=== PATIENT | male | born 1995 | race African-American/Black ===

== ENCOUNTER 2017-01-04 18:17 | Emergency (ER) | payer OTHER, MEDICAID ==
--- NOTE | 2017-01-04 20:26 | ER Document Report ---
ED Psych Disorder / Suicide - General Mode of Arrival: Ambulatory Information source: Parent TRAVEL OUTSIDE OF THE [place] IN LAST 30 DAYS: No - HPI Patient complains to provider of: Homicidal ideation, Homicidal plan Onset: Other - see HPI note Similar symptoms previously: Yes Recently seen / treated by doctor: No <CRISTIANA SOLIS - Last Filed: 01/05/17 01:07> <DAMIÁN WASHINGTON - Last Filed: 01/05/17 04:33> - General Stated Complaint: PSYCH EVAL Time Seen by Provider: 01/04/17 20:17 Notes: Patient is a 21 year old male presenting to the emergency department for homicidal ideation and for a psych evaluation. Patient's mother states that the patient has become argumentative and aggressive. Patient had made verbal threats to "padilla her and his brother, if he had a weapon." Mother is concerned for the safety of herself and her other child. Patient has a history of ADHD, ODD, and a developmental delay. Patient has also been stealing things in his house and he told a friend he wanted to have sex with his sister. Patient mother is scared to take the patient home. (CRISTIANA SOLIS) - Related Data Allergies/Adverse Reactions: No Known Allergies Allergy (Verified 05/05/12 11:47) Past Medical History - General Information source: Parent - Social History Smoking Status: Unknown if Ever Smoked Family History: None Patient has homicidal ideation: Yes Psychiatric Medical History: Reports: Hx Attention Deficit Hyperactivity Disorder, Other - ODD, developmental delay Surgical Hx: Negative - Immunizations Immunizations up to date: Yes Hx Diphtheria, Pertussis, Tetanus Vaccination: Yes <CRISTIANA SOLIS - Last Filed: 01/05/17 01:07> Review of Systems - Review of Systems Constitutional: No symptoms reported EENT: No symptoms reported Cardiovascular: No symptoms reported Respiratory: No symptoms reported Gastrointestinal: No symptoms reported Genitourinary: No symptoms reported Male Genitourinary: No symptoms reported Musculoskeletal: No symptoms reported Skin: No symptoms reported Hematologic/Lymphatic: No symptoms reported Neurological/Psychological: See HPI -: Yes All other systems reviewed and negative <CRISTIANA SOLIS - Last Filed: 01/05/17 01:07> Physical Exam - Vital signs Interpretation: Normal - General General appearance: Appears well, Alert In distress: Mild - HEENT Head: Normocephalic, Atraumatic Eyes: Normal Pupils: PERRL Mucous membranes: Moist - Respiratory Respiratory status: No respiratory distress - Cardiovascular Rhythm: Regular - Abdominal Inspection: Normal - Back Back: Normal - Extremities General upper extremity: Normal inspection, Normal ROM, Normal strength General lower extremity: Normal inspection, Normal ROM, Normal strength - Neurological Neuro grossly intact: Yes Cognition: Normal Delray Coma Scale Eye Opening: Spontaneous Carina Coma Scale Verbal: Oriented Carina Coma Scale Motor: Obeys Commands Carina Coma Scale Total: 15 Speech: Normal - Psychological Associated symptoms: Other - odd affect - Skin Skin Temperature: Warm Skin Moisture: Dry <CRISTIANA SOLIS - Last Filed: 01/05/17 01:07> <DAMIÁN WASHINGTON - Last Filed: 01/05/17 04:33> - Vital signs Vitals: Temperature: 97.7 F Pulse: 94 Blood Pressure: 131/90 Resp. Rate: 18 SaO2: 100 % RA (CRISTIANA SOLIS) Course - Laboratory Result Diagrams: 01/04/17 21:50 01/04/17 21:50 <CRISTIANA SOLIS - Last Filed: 01/05/17 01:07> - Laboratory Result Diagrams: 01/04/17 21:50 01/04/17 21:50 <DAMIÁN WASHINGTON - Last Filed: 01/05/17 04:33> - Re-evaluation Re-evalutation: 01/04/17 Patient is a 21-year-old male who comes in with threatening behavior to family. Patient is medically stable. He has been calm and cooperative in the emergency department. Did however state that if he had a weapon he would hurt his mother and brother. He also apparently stated that he wanted to have sex with his sister. Patient will be held for further evaluation by mental health in the morning. Stable at this time. (DAMIÁN WASHINGTON) - Laboratory Laboratory results interpreted by me: 01/04/17 21:50 Total Bilirubin 2.4 H Total Protein 8.5 H Salicylates < 1.0 L Acetaminophen < 10 L Discharge <CRISTIANA SOLIS - Last Filed: 01/05/17 01:07> <DAMIÁN WASHINGTON - Last Filed: 01/05/17 04:33> - Discharge Clinical Impression: Behavioral disorder Condition: Stable Disposition: OTHER Scribe Attestation: 01/05/17 04:32 I personally performed the services described in the documentation, reviewed and edited the documentation which was dictated to the scribe in my presence, and it accurately records my words and actions. (DAMIÁN WASHINGTON) Scribe Documentation - Scribe Written by [employer]:: Glo Tavera 01/04/17 23:26 acting as scribe for :: Norma <CRISTIANA SOLIS - Last Filed: 01/05/17 01:07>
[2017-01-04 21:46] LABS: APPEARANCE,URINE CLEAR; BILIRUBIN,URINE NEGATIVE (NEGATIVE); GLUCOSE, URINE NEGATIVE (NEGATIVE); KETONES,URINE NEGATIVE (NEGATIVE); LEUKOCYTE ESTERASE,URINE NEGATIVE (NEGATIVE); NITRITE,URINE NEGATIVE (NEGATIVE); PROTEIN,URINE NEGATIVE (NEGATIVE); URINE SPECIFIC GRAVITY 1.009; UROBILINOGEN,URINE NEGATIVE mg/dL (<2.0)
[2017-01-04 22:06] LABS: ABSOLUTE BASOPHILS # (AUTO) 0.1 10^3/uL (0.0-0.2); ABSOLUTE EOSINOPHILS # (AUTO) 0.1 10^3/uL (0.0-0.6); ABSOLUTE MONOCYTES (AUTO) 0.6 10^3/uL (0.1-1.4); ABSOLUTE NEUT (AUTO) 3.7 10^3/uL (1.7-8.2); BASOPHILS % (AUTO) 1.6 % (0-2); HEMATOCRIT 42.5 % (37.9-51.0); HEMOGLOBIN 14.5 g/dL (13.5-17.0); LYMPHOCYTES % (AUTO) 30.5 % (13-45); MEAN CORPUSCULAR HEMOGLOBIN 29.2 pg (27.0-33.4); MEAN CORPUSCULAR VOLUME 86 fl (80-97); MONOCYTES % (AUTO) 8.7 % (3-13); RED BLOOD COUNT 4.96 10^6/uL (4.35-5.55); SEGMENTED NEUTROPHILS % (AUTO) 57.2 % (42-78); WHITE BLOOD COUNT 6.4 10^3/uL (4.0-10.5)
[2017-01-04 22:11] LABS: URINE BARBITURATES SCREEN NEGATIVE; URINE METHADONE SCREEN NEGATIVE; URINE OPIATES LOW NEGATIVE; URINE PHENCYCLIDINE SCREEN NEGATIVE
[2017-01-04 22:26] LABS: ALANINE AMINOTRANSFERASE 29 U/L (21-72); ALCOHOL < 10 mg/dL (NONE DETECTED); ALKALINE PHOSPHATASE 71 U/L (38-126); ANION GAP 15 (5-19); ASPARTATE AMINO TRANSFERASE 26 U/L (17-59); BILIRUBIN,DIRECT 0.3 mg/dL (0.0-0.4); BILIRUBIN,TOTAL 2.4 mg/dL (0.2-1.3); BLOOD UREA NITROGEN 13 mg/dL (7-20); CARBON DIOXIDE 28 mmol/L (22-30); CHLORIDE 102 mmol/L (98-107); CREATININE RESULT 1.09 mg/dL (0.52-1.25); GLUCOSE 91 mg/dL (75-110); POTASSIUM 3.7 mmol/L (3.6-5.0); SODIUM 144.5 mmol/L (137-145); TOTAL PROTEIN 8.5 g/dL (6.3-8.2)
[2017-01-05] MEDS ORDERED: ARIPIPRAZOLE 5 MG TABLET PO SCH (10:00)
--- NOTE | 2017-01-05 10:37 | EKG REPORT ---
SEVERITY:- NORMAL ECG - SINUS RHYTHM : Confirmed by: Anitha Perez MD 05-Jan-2017 10:37:03
--- NOTE | 2017-01-05 13:14 | PSYCHOLOGICAL NOTE ---
Psych Note - Psych Note Psych Note: Patient is a 21 year old male presenting to the emergency department for homicidal ideation and for a psych evaluation. Patient's mother states that the patient has become argumentative and aggressive. Patient had made verbal threats to "padilla her and his brother, if he had a weapon." Mother is concerned for the safety of herself and her other child. Patient has a history of ADHD, ODD, and a developmental delay. Patient has also been stealing things in his house and he told a friend he wanted to have sex with his sister. Patient mother is scared to take the patient home. Patient states that he became angry yesterday because of his grades. He stated ; "I threw some things." He denies saying anything that was threatening. Patient reports he is in the 11th grade at [employer]. He continued to disclose he has an outpatient provider for mental health. Patient states that he does not want to hurt himself or others. He is concerned that he is missing school right now and asked when he can go home. Patient's mother, Cecilia [phone], state her main concern is the patient's anger, aggression, and confrontational. she continued to explain yesterday his brother left his chain in the bathroom and the patient picked it up and refused to give it back. They started to argue and the patient slammed the door "so hard the pictures fell off the wall." she states the patient is uncontrollable and she sleeps in her clothes because she doesn't know what will happen. She is concerned for everyone in the house because he has increased his behaviour told her to "suck my ingris" and said "he wants to sleep with his sister." She disclosed the patient started [employer] 3 weeks ago (the onset of behavioral issues). 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 She states this was traumatic for the patient because he had no warning about moving classes and was moved that afternoon. She continued to state he wanted to get his degree and now it is like he is coloring, connecting dot to dot and tracing his alphabet. She disclosed that she is trying to get him with [employer] so has an appointment with [facility] at 3pm today. She states she will take the patient to this appointment but refuses to take him home because she has to 'Think of everyone else in the home." She continued to state that she will not be one of those moms that "gets her head chopped off" and his siblings are afraid of him. Patient is alert and orientated to person, place time and circumstance. Mood is euthymic with congruent affect; to include smiling and laughing. Patient denies suicidal and homicidal ideation; admits to behavioral outburst last night. Patient denies auditory and visual hallucinations: bridger is not demonstrating behaviour too indicate he is responding to internal stimuli (i.e. good eye contact, organized thought process). No delusions are noted. Thought process is organized and linear. Conversational speech is within normal rate tone and prosody. Intellectual abilities appear to have delay and low average range. Attention and concentration are good. Insight, judgment and impulse control are fair. [phone] [id number]) Unspecified Intellectual disability per history reported by bridger's mother Impression/Plan: patient is recommended for rescind of IVC and is considered psychiatrically clear for discharge. Patient admits to behavioral outburst and denies suicidal and homicidal ideation. He does not meet IVC criteria per [place] GS 122C. Patient is recommended to have a full scale psychiatric evaluation to determine IQ and services needed. Patient may need additional psychosocial assistance to successfully progress into adulthood. Clinician made a report to APS with concerns of patient's mother refusing to allow the patient to return home and because the family needs resources. Dr Ruff was consulted on the care and management of this patient; attending physician is in agreement with recommendations and disposition.
--- NOTE | 2017-01-05 13:30 | ER Document Report ---
Doctor's Note Notes: 01/05/17 13:29 Rounds: Patient is reviewed. Discussed with mental health providers. Patient is felt to be stable medically for transfer or discharge. Patient has appointment at 2:00 at [facility]. Janine Hill MD
[2017-01-05 13:33] VITALS: BP 125/55
[2017-01-05] MEDS ORDERED: BENZTROPINE MESYLATE 1 MG TABLET PO SCH (22:00)
== END 2017-01-05 13:34 | disposition home or self-care (01) ==
LOC: ER 18:17
DX: F79 Unspecified intellectual disabilities (principal); R45.850 Homicidal ideations; F91.9 Conduct disorder, unspecified
CPT/HCPCS: 93005; 99285; 36415; 80307 ×4; 85025; 80053; 81001; 93010; J3490